=== PATIENT | male | born 1950 | race Caucasian/White ===

== ENCOUNTER 2024-11-19 12:01 | Inpatient (IN) | payer OTHER, MEDICARE ==
[~2024-11-19] VITALS: Ht 176.5 cm; Wt 81.3 kg
[~2024-11-19 12:01] MED LIST: SYNTHROID
--- NOTE | 2024-11-19 12:35 | ED.PDOC ---
GI ASSESSMENT HPI Comments 74y M who presents to the ED for chief complaint of rectal bleeding. Pt states last night PM, he had bowel movement and states he noted blood in bowel movement but states due to the increase in blood in toilet, he was unable to see his stool. Pt states he has had prior history of diverticulitis and states was placed on antibiotics by PCP and finished his course. Pt states today, he also noted to have L sided chest pain, rating the pain 2/10, constant, and came to the ED for further evaluation. Pt states he otherwise has history of prostate cancer and recently finished his course of treatment 4 months prior. Pt otherwise denies any other symptoms at this time. Chief Complaint: GI Bleed Time Seen by MD: 12:28 Primary Care Provider: CAMELIA Sutton Notes: Nurses Notes Allergies: Coded Allergies: NO KNOWN ALLERGIES (Unverified , 01/05/13) Home Meds Reported Medications [Synthroid] No Conflict Check 01/05/13 Information Source: Patient Mode of Arrival: Ambulatory Brought in by: self Timing: Hours Duration: Since onset Prehospital treatment: None Quality: Aching Vomitus: None Stool: Blood Streaked Severity: Moderate Recent: None Recent Hx of: Immunosuppression Modifying Factors: Nothing Associated sign and symptoms: Diarrhea, Blood in Stool, Other (chest pain) Past Medical History PAST MEDICAL HISTORY: Cancer, High Lipids Surgical History (Other): stye, cyst on face and abdomen Family History Family History: Reviewed,noncontributory to illness Social History Smoker: Non-Smoker Alcohol: Denies ETOH Use Drugs: Denies Drug Use Lives In: Home Constitutional: denies: chills, diaphoresis, fatigue, fever, malaise, sweats, weakness, others EENTM: denies: blurred vision, double vision, ear bleeding, ear discharge, ear drainage, ear pain, ear ringing, eye pain, eye redness, hearing loss, mouth pain, mouth swelling, nasal discharge, nose bleeding, nose congestion, nose pain, photophobia, tearing, throat pain, throat swelling, voice changes, others Respiratory: denies: cough, hemoptysis, orthopnea, SOB at rest, shortness of breath, SOB with excertion, stridor, wheezing, others Cardiovascular: reports: chest pain; denies: dizzy spells, diaphoresis, Dyspnea on exertion, edema, irregular heart beat, left arm pain, lightheadedness, palpitations, PND, syncope, others Gastrointestinal: reports: rectal bleeding, rectal pain; denies: abdomen distended, abdominal pain, blood streaked bowels, constipated, diarrhea, dysphagia, difficulty swallowing, hematemesis, melena, nausea, poor appetite, poor fluid intake, vomiting, others Genitourinary: denies: burning, dysuria, flank pain, frequency, hematuria, incontinence, penile discharge, penile sore, pain, testicle pain, testicle swelling, urgency, others Neurological: denies: dizziness, fainting, headache, left sided numbness, left sided weakness, numbness, paresthesia, pre-existing deficit, right sided numbness, right sided weakness, seizure, speech problems, tingling, tremors, weakness, others Musculoskeletal: denies: back pain, gout, joint pain, joint swelling, muscle pain, muscle stiffness, neck pain, others Integumetry: denies: bruises, change in color, change in hair/nails, dryness, laceration, lesions, lumps, rash, wounds, others Allergic/Immunocompromised: denies: Difficulty Healing, Frequent Infections, Hives, Itching, others Hematologic/Lymphatic: denies: anemia, blood clots, easy bleeding, easy bruising, swollen glands, others Endocrine: denies: excessive hunger, excessive sweating, excessive thirst, excessive urination, flushing, intolerance to cold, intolerance to heat, unexplained weight gain, unexplained weight loss, others Psychiatric: denies: anxiety, bipolar disorder, depression, hopeless, panic disorder, schizophrenia, sleepless, suicidal, others All Other Systems: Reviewed and Negative Physical Exam General Appearance: Moderate Distress HEENT: Normal ENT Inspection, Pharynx Normal, TMs Normal Neck: Full Range of Motion, Non-Tender, Normal, Normal Inspection Respiratory: Chest Non-Tender, Lungs Clear, No Accessory Muscle Use, No Respiratory Distress, Normal Breath Sounds Cardiovascular: No Edema, No JVD, No Murmur, No Gallop, Normal Peripheral Pulses, Regular Rate/Rhythm Breast Exam: Deferred Gastrointestinal: LLQ, No Organomegaly, No Pulsatile Mass, Normal Bowel Sounds, Soft, Suprapubic, Tenderness Genitalia: Deferred Pelvic: Deferred Rectal: Deferred Extremities: No calf tenderness, Normal capillary refill, Normal inspection, Normal range of motion, Non-tender, No pedal edema Musculoskeletal : Apperance: Normal Neurologic: Alert, commercial coordinator II-XII nml as Tested, No Motor Deficits, Normal Affect, Normal Mood, No Sensory Deficits Cerebellar Function: Normal Reflexes: Normal Skin: Dry, Normal Color, Warm Lymphatic: No Adenopathy EKG EKG : Pulse Rate (adult): 75 Ambler: Normal Cardiac Rhythm: NSR Block: None Hypertrophy: None ST: Normal Was a procedure done? Was a procedure done?: No GI differential Dx Differential Diagnosis: Constipation, Diverticular disease, Gastroenteritis, GI hemorrhage, Dehydration, Electrolyte Imbalance, Food Poisoning, Stress Ulcer, Kidney Stone Other Differential Diagnosis colitis, X-Ray, Labs, Meds, VS Vital Signs Date Time Temp Pulse Resp B/P (MAP) Pulse Ox O2 Delivery O2 Flow Rate FiO2 11/19/24 13:04 98.3 76 18 128/87 (101) 95 98.3 11/19/24 13:04 76 18 95 Room Air 11/19/24 13:03 Room Air* 0 21 11/19/24 12:35 75 11/19/24 12:16 75 11/19/24 12:10 98.8 85 18 140/86 (104) 95 98.8 Lab Test 11/19/24 13:00 Range/Units White Blood Count 5.2 4.4-10.8 10^3/uL Red Blood Count 4.37 L 4.5-5.90 10^6/uL Hemoglobin 14.7 13.5-17.5 g/dL Hematocrit 42.3 41.0-53.0 % Mean Corpuscular Volume 96.7 80.0-100.0 fL Mean Corpuscular Hemoglobin 33.6 H 28.0-32.0 pg Mean Corpuscular Hemoglobin Concent 34.8 32.0-36.0 g/dL Red Cell Distribution Width 13.9 11.8-14.3 % Platelet Count 154 140-450 10^3/uL Mean Platelet Volume 7.3 6.9-10.8 fL Neutrophils (%) (Auto) 64.2 37.0-80.0 % Lymphocytes (%) (Auto) 23.6 10.0-50.0 % Monocytes (%) (Auto) 9.6 0.0-12.0 % Eosinophils (%) (Auto) 1.9 0.0-7.0 % Basophils (%) (Auto) 0.7 0.0-2.0 % Neutrophils # (Auto) 3.3 1.6-8.6 10 ^3/uL Lymphocytes # (Auto) 1.2 0.4-5.4 10 ^3/uL Monocytes # (Auto) 0.5 0-1.3 10 ^3/uL Eosinophils # (Auto) 0.1 0-0.8 10 ^3/uL Basophils # (Auto) 0 0-0.2 10 ^3/uL Nucleated Red Blood Cells 0.1 % Prothrombin Time 10.3 9.3-11.8 sec Prothrombin Time INR 0.97 0.9-1.15 Activated Partial Thromboplast Time 25.0 24.5-34.5 SEC Sodium Level 142 136-145 mmol/L Potassium Level 3.9 3.5-5.1 mmol/L Chloride Level 109 H 98-107 mmol/L Carbon Dioxide Level 26 20-31 mmol/L Anion Gap 7 5-15 Blood Urea Nitrogen 25 H 9-23 mg/dL Creatinine 0.88 0.700-1.30 mg/dL Glomerular Filtration Rate Calc 89 >90 mL/min BUN/Creatinine Ratio 28.4 H 10.0-20.0 Serum Glucose 114 H 74-106 mg/dL Calcium Level 9.9 8.7-10.4 mg/dL Total Bilirubin 1.1 H 0.2-1.0 mg/dL Aspartate Amino Transferase (AST) 20 13-40 U/L Alanine Aminotransferase (ALT) 24 7-40 U/L Alkaline Phosphatase 94 46-116 U/L Total Protein 7.2 5.7-8.2 g/dL Albumin 4.6 3.2-4.8 g/dL Lipase 31 12-53 U/L CT Abd/Pel indicates: 1. There is no acute process in the abdomen and pelvis. 2. Moderate amount of stool in the colon. 3. Prostatomegaly. The patient's CBC is within normal limits The chemistry panel is within normal limits There is a concern because the patient was having a lower GI bleed The patient was being admitted at this time The patient understands and agrees with the management. Images Reviewed?: Images reviewed and evaluated by me Time of 1ST Reevaluation: 13:00 Reevaluation 1ST: Unchanged Patient Education/Counseling: Diagnosis, Treatment, Prognosis Family Education/Counseling: No Family Present Additional Information -Reviewed patient's previous visit(s): - The following tests were ordered, and results were reviewed by me: ekg x1, cbc, cmp, lipase, ct abd pelvis non-con, ptptt - Additional information was gathered from interviewing the following independent Historian: self - I reviewed and agreed with the following test results read by other provider: radiologist - I discussed treatments and results with medical personnel and: patient Comprehensive systems review obtained and negative except for what is stated in the HPI. Departure 1 Departure Time of Disposition: 15:57 Impression: Primary Impression: Lower GI bleed Disposition: ADMITTED INPATIENT Admit to: Med Surg Condition: Fair Critical Care Note Critical Care Time?: No Stability Stability form required: Yes Unstable for transfer: ED Physician Assesment (Clinical assesment) Heart Score Heart Score: Heart Score Response (Comments) Value History Slightly Suspicious 0 EKG Normal 0 Age >65 2 Risk Factors 1 or 2 risk factors 1 Troponin N/A 0 Total 3 I personally scribed for KASH ARMSTRONG MD ([email or web address]) on 11/19/24 at 12:35. Electronically submitted by Ritu Osorio ([email or web address]). I personally scribed for KASH ARMSTRONG MD ([email or web address]) on 11/19/24 at 13:08. Electronically submitted by Malcolm Coffman ([email or web address]). I personally scribed for KASH ARMSTRONG MD ([email or web address]) on 11/19/24 at 13:35. Electronically submitted by Ritu Osorio ([email or web address]). KASH ARMSTRONG MD Nov 19, 2024 12:35
--- NOTE | 2024-11-19 12:58 | DVH ---
CT ABDOMEN AND PELVIS WITHOUT CONTRAST CLINICAL HISTORY: pain TECHNIQUE: Multiple contiguous axial images of the abdomen and pelvis without intravenous contrast. T he images were reformatted degenerate coronal and sagittal reconstructions. All CT scans at this medical facility are performed using dose modulation techniques as appropriate t o a performed exam including the following:Automated exposure control was utilized; adjustment of the MA and/or KV according to patient size; and use of iterative reconstruction technique. Radiation Dose Information: CT Dose: CTDI volume is 9.67 mGy. Dose-length product is 488.67 mGy*cm Comparison: None FINDINGS: Evaluation of the abdomen and pelvis is limited without intravenous contrast. There is no evidence of nephrolithiasis or hydronephrosis. There are multiple bilateral renal cysts i ncluding multiple peripelvic cysts. There are small hypodense foci in the liver which are too small to characterize are favored to repres ent small cysts. The gallbladder, pancreas, delete the adrenal glands, and spleen appear within no rmal limits. There is no gross evidence of abdominal lymphadenopathy. There is no free fluid or free air. The stomach grossly appears unremarkable. The small and large bowel loops demonstrate normal caliber and distribution. There is moderate amount of stool in the colon. A normal appearing appendix is see n in the right lower quadrant abdomen. The abdominal aorta and IVC appear within normal limits. Prostate gland is prominent in size. Bladder appears within normal limits for degree of distention.. There is no gross evidence of a pelvic mass. There is no free fluid collection. Lung bases are clear. There is no acute osseous abnormality. IMPRESSION: 1. There is no acute process in the abdomen and pelvis. 2. Moderate amount of stool in the colon. 3. Prostatomegaly. HS:Y
[2024-11-19 13:21] LABS: Basophils # (auto) 0 10 ^3/uL (0-0.2); Basophils % (auto) 0.7 % (0.0-2.0); Eosinophils # (auto) 0.1 10 ^3/uL (0-0.8); Eosinophils % (auto) 1.9 % (0.0-7.0); Hematocrit 42.3 % (41.0-53.0); Hemoglobin 14.7 g/dL (13.5-17.5); Lymphocytes # (auto) 1.2 10 ^3/uL (0.4-5.4); Lymphocytes % (auto) 23.6 % (10.0-50.0); Mean Corpuscular Hemoglobin 33.6 pg (28.0-32.0); Mean Corpuscular Hgb Conc. 34.8 g/dL (32.0-36.0); Mean Corpuscular Volume 96.7 fL (80.0-100.0); Monocytes # (auto) 0.5 10 ^3/uL (0-1.3); Monocytes % (auto) 9.6 % (0.0-12.0); Neutrophils # (auto) 3.3 10 ^3/uL (1.6-8.6); Neutrophils % (auto) 64.2 % (37.0-80.0); Nucleated Red Blood Cells % 0.1 %; Platelet Count (auto) 154 10^3/uL (140-450); Red Blood Cells 4.37 10^6/uL (4.5-5.90); Red Cell Distribution Width 13.9 % (11.8-14.3); White Blood Cell 5.2 10^3/uL (4.4-10.8)
[2024-11-19 13:42] LABS: Alanine Aminotransferase 24 U/L (7-40); Albumin 4.6 g/dL (3.2-4.8); Alkaline Phosphatase 94 U/L (46-116); Anion Gap 7 (5-15); Aspartate Aminotransferase 20 U/L (13-40); BUN/Creatinine Ratio 28.4 (10.0-20.0); Calcium 9.9 mg/dL (8.7-10.4); Carbon Dioxide 26 mmol/L (20-31); INR 0.97 (0.9-1.15); Lipase 31 U/L (12-53); Potassium 3.9 mmol/L (3.5-5.1); Prothrombin Time 10.3 sec (9.3-11.8); Sodium 142 mmol/L (136-145); Total Protein 7.2 g/dL (5.7-8.2)
[2024-11-19 13:43] LABS: Bilirubin, Total 1.1 mg/dL (0.2-1.0); Blood Urea Nitrogen 25 mg/dL (9-23); Chloride 109 mmol/L (98-107); Glucose 114 mg/dL (74-106)
--- NOTE | 2024-11-19 18:11 | ECG ---
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
[2024-11-19] MEDS ORDERED: ONDANSETRON HCL 4 MG/2 ML VIAL IV PRN (19:15)
[2024-11-19] MEDS: PANTOPRAZOLE 40 MG/10 ML VIAL INJ IV ONE (19:33)
--- NOTE | 2024-11-19 22:10 | DVHHP2 ---
History of Present Illness Reason for Visit: Rectal bleeding History of Present Illness 74-year-old male presents for evaluation of rectal bleeding. Patient reports having two episodes of bloody stools over the past two days. Denies being on blood thinners. He does report a history of diverticulitis in the past. No abdominal pain, nausea or vomiting. No other acute complaints reported. Past Medical History Thyroid, dyslipidemia, cancer Past Surgical History Denies Family History Noncontributory Smoke: No ALCOHOL: none Drugs: None Lives: with Family Review of Systems Review of Systems Review of systems are currently negative otherwise addressed in HPI. Allergies: Coded Allergies: NO KNOWN ALLERGIES (Unverified , 01/05/13) Medications Current Medications Medications Dose Ordered Sig/Michelle Route Start Time Stop Time Status Last Admin Dose Admin Pantoprazole Sodium 40 mg DAILY IV 11/20/24 10:00 Levothyroxine Sodium 75 mcg QAM@0600 PO 11/20/24 06:00 Ondansetron HCl 4 mg Q4HP PRN IV 11/19/24 19:15 Exam Vital Signs Vital Signs Date Time Temp Pulse Resp B/P (MAP) Pulse Ox O2 Delivery O2 Flow Rate FiO2 11/19/24 19:31 70 16 144/92 (109) 96 11/19/24 13:04 98.3 98.3 11/19/24 13:04 Room Air 11/19/24 13:03 0 21 Exam Gen: 74-year-old male in mild distress Skin: Warm, dry, normal color and texture, no rash. HEENT: Normocephalic atraumatic, mucous membranes moist and pink. Neck: Cervical and supraclavicular nodes normal without enlargement, trachea is midline, thyroid gland is normal without masses. Pulmonary: Clear to auscultation and percussion bilaterally. Cardiac: Regular rate and rhythm. No murmur Abdomen: Soft, nontender, nondistended, bowel sounds present all 4 quadrants, no guarding, no rigidity, no organomegaly. Extremities: No cyanosis, clubbing, no edema Neuro: Cranial nerves II through XII grossly intact, normal affect and speech, no focal motor deficits. Labs/Xrays ORDERING PHYSICIAN: KASH ARMSTRONG MD PROCEDURE(s): ABPL - CT AB PEL WO CON-NO ORAL OR IV REASON: pain ORDER NUMBER(s): [id number], ACCESSION NUMBER(s): [id number] CT ABDOMEN AND PELVIS WITHOUT CONTRAST CLINICAL HISTORY: pain TECHNIQUE: Multiple contiguous axial images of the abdomen and pelvis without intravenous contrast. The images were reformatted degenerate coronal and sagittal reconstructions. All CT scans at this medical facility are performed using dose modulation techniques as appropriate to a performed exam including the following:Automated exposure control was utilized; adjustment of the MA and/or KV according to patient size; and use of iterative reconstruction technique. Radiation Dose Information: CT Dose: CTDI volume is 9.67 mGy. Dose-length product is 488.67 mGy*cm Comparison: None FINDINGS: Evaluation of the abdomen and pelvis is limited without intravenous contrast. There is no evidence of nephrolithiasis or hydronephrosis. There are multiple bilateral renal cysts including multiple peripelvic cysts. There are small hypodense foci in the liver which are too small to characterize are favored to represent small cysts. The gallbladder, pancreas, delete the adrenal glands, and spleen appear within normal limits. There is no gross evidence of abdominal lymphadenopathy. There is no free fluid or free air. The stomach grossly appears unremarkable. The small and large bowel loops demonstrate normal caliber and distribution. There is moderate amount of stool in the colon. A normal appearing appendix is seen in the right lower quadrant abdomen. The abdominal aorta and IVC appear within normal limits. Prostate gland is prominent in size. Bladder appears within normal limits for degree of distention.. There is no gross evidence of a pelvic mass. There is no free fluid collection. Lung bases are clear. There is no acute osseous abnormality. IMPRESSION: 1. There is no acute process in the abdomen and pelvis. 2. Moderate amount of stool in the colon. 3. Prostatomegaly. HS:Y Labs Test 11/19/24 13:00 Range/Units White Blood Count 5.2 4.4-10.8 10^3/uL Red Blood Count 4.37 L 4.5-5.90 10^6/uL Hemoglobin 14.7 13.5-17.5 g/dL Hematocrit 42.3 41.0-53.0 % Mean Corpuscular Volume 96.7 80.0-100.0 fL Mean Corpuscular Hemoglobin 33.6 H 28.0-32.0 pg Mean Corpuscular Hemoglobin Concent 34.8 32.0-36.0 g/dL Red Cell Distribution Width 13.9 11.8-14.3 % Platelet Count 154 140-450 10^3/uL Mean Platelet Volume 7.3 6.9-10.8 fL Neutrophils (%) (Auto) 64.2 37.0-80.0 % Lymphocytes (%) (Auto) 23.6 10.0-50.0 % Monocytes (%) (Auto) 9.6 0.0-12.0 % Eosinophils (%) (Auto) 1.9 0.0-7.0 % Basophils (%) (Auto) 0.7 0.0-2.0 % Neutrophils # (Auto) 3.3 1.6-8.6 10 ^3/uL Lymphocytes # (Auto) 1.2 0.4-5.4 10 ^3/uL Monocytes # (Auto) 0.5 0-1.3 10 ^3/uL Eosinophils # (Auto) 0.1 0-0.8 10 ^3/uL Basophils # (Auto) 0 0-0.2 10 ^3/uL Nucleated Red Blood Cells 0.1 % Prothrombin Time 10.3 9.3-11.8 sec Prothrombin Time INR 0.97 0.9-1.15 Activated Partial Thromboplast Time 25.0 24.5-34.5 SEC Sodium Level 142 136-145 mmol/L Potassium Level 3.9 3.5-5.1 mmol/L Chloride Level 109 H 98-107 mmol/L Carbon Dioxide Level 26 20-31 mmol/L Anion Gap 7 5-15 Blood Urea Nitrogen 25 H 9-23 mg/dL Creatinine 0.88 0.700-1.30 mg/dL Glomerular Filtration Rate Calc 89 >90 mL/min BUN/Creatinine Ratio 28.4 H 10.0-20.0 Serum Glucose 114 H 74-106 mg/dL Calcium Level 9.9 8.7-10.4 mg/dL Total Bilirubin 1.1 H 0.2-1.0 mg/dL Aspartate Amino Transferase (AST) 20 13-40 U/L Alanine Aminotransferase (ALT) 24 7-40 U/L Alkaline Phosphatase 94 46-116 U/L Total Protein 7.2 5.7-8.2 g/dL Albumin 4.6 3.2-4.8 g/dL Lipase 31 12-53 U/L Assessment/Plan Assessment/Plan Assessment Lower GI bleed Plan Admit the patient to [facility] to the hospitalist GI consultation IV Protonix Clear liquid diet Continue treatment per orders. Plan discussed with: Patient My Orders Orders - SHELBI JOSUE Procedure Category Date Status Time Pantoprazole PHA 11/20/24 In Process (Protonix) 10:00 Levothyroxine Tablet PHA 11/20/24 In Process (Synthroid Tablet) 06:00 Stool Occult Blood LAB 11/19/24 Logged 19:13 Basic Metabolic Panel LAB 11/20/24 Verified 04:00 Admit ADMIT 11/19/24 Transmitted 19:13 Ondansetron Hcl PHA 11/19/24 In Process (Zofran) 19:15 Complete Blood Count LAB 11/20/24 Verified 04:00 Condition: Stable ESTELLA 11/19/24 In Process 19:13 Clear Liq Diet DIET 11/20/24 Transmitted Breakfast Bedrest With Bathroom ESTELLA 11/19/24 In Process Privileg 19:13 Date of Service: Nov 19, 2024 Billing Provider: SHELBI JOSUE Common Visit Codes: [id number] INP/OBS CARE (HIGH) SHELBI JOSUE Nov 19, 2024 22:10
[2024-11-19 22:48] VITALS: PULSE 61; RESP 16; O2SAT 97
[2024-11-19] MEDS ORDERED: LEVO75TA6 PO (23:00)
[2024-11-20] VITALS (7 sets, daily range): BP systolic 95–118; BP diastolic 63–75; PULSE 57–67; RESP 15–18; TEMP 36.6; O2SAT 95–99
[2024-11-20] MEDS: LEVOTHYROXINE SODIUM 25 MCG TAB PO SCH (05:34)
[2024-11-20 07:18] LABS: Basophils # (auto) 0.1 10 ^3/uL (0-0.2); Eosinophils # (auto) 0.1 10 ^3/uL (0-0.8); Hemoglobin 13.3 g/dL (13.5-17.5); Monocytes # (auto) 0.6 10 ^3/uL (0-1.3); White Blood Cell 4.8 10^3/uL (4.4-10.8)
[2024-11-20 07:21] LABS: Basophils % (auto) 1.3 % (0.0-2.0); Hematocrit 36.6 % (41.0-53.0); Lymphocytes # (auto) 1.5 10 ^3/uL (0.4-5.4); Lymphocytes % (auto) 31.5 % (10.0-50.0); Mean Corpuscular Hemoglobin 34.7 pg (28.0-32.0); Mean Corpuscular Hgb Conc. 36.3 g/dL (32.0-36.0); Mean Corpuscular Volume 95.4 fL (80.0-100.0); Monocytes % (auto) 11.7 % (0.0-12.0); Neutrophils # (auto) 2.6 10 ^3/uL (1.6-8.6); Neutrophils % (auto) 53.5 % (37.0-80.0); Nucleated Red Blood Cells % 0.1 %; Platelet Count (auto) 137 10^3/uL (140-450); Red Blood Cells 3.83 10^6/uL (4.5-5.90); Red Cell Distribution Width 13.9 % (11.8-14.3)
[2024-11-20 07:28] LABS: Sodium 141 mmol/L (136-145)
[2024-11-20 07:29] LABS: Anion Gap 7 (5-15); Calcium 9.6 mg/dL (8.7-10.4); Carbon Dioxide 27 mmol/L (20-31)
[2024-11-20 07:34] LABS: BUN/Creatinine Ratio 25.6 (10.0-20.0); Blood Urea Nitrogen 20 mg/dL (9-23); Glucose 90 mg/dL (74-106)
[2024-11-20 07:37] LABS: Chloride 107 mmol/L (98-107); Potassium 3.5 mmol/L (3.5-5.1)
[2024-11-20] MEDS: PANTOPRAZOLE 40 MG/10 ML VIAL INJ IV SCH (09:41)
--- NOTE | 2024-11-20 15:05 | DVHINCON2 ---
Date of service: Nov 20, [address] Perez Reason for Consultation GI bleed History of Present Illness The patient is a 74-year-old male who states that he underwent colonoscopy several years ago with Dr. Serrano, findings were negative, he has a history of diverticulitis as well, admitted with GI bleeding. Patient had two episodes of bright red blood per rectum. Patient states that he has hemorrhoids. He states that he always has lower abdominal pain due to gas. He denies any fevers or chills, he denies any chest pain or shortness of breath. The bleeding has stopped today. Patient denies any hematemesis, history of significant aspirin or NSAID use. Patient denies history of anemia, diabetes, cardiac disease, pulmonary disease, arthralgias myalgias, dysuria or hematuria Past Medical History Hypothyroidism Past Surgical History Denies any abdominal surgery Family History: Patient reports no known family medical history. Family History No gastrointestinal diseases or malignancies Allergies: Coded Allergies: NO KNOWN ALLERGIES (Unverified , 01/05/13) Home Meds Reported Medications Levothyroxine Sodium (Levothyroxine Sodium) 75 Mcg Tab, 1 TAB PO DAILY 11/19/24 [Synthroid] No Conflict Check 01/05/13 Current Medications Current Medications Medications (Trade) Dose Ordered Sig/Michelle Route PRN Reason Start Time Stop Time Status Last Admin Pantoprazole Sodium (Protonix) 40 mg DAILY IV 11/20/24 10:00 11/20/24 09:41 Levothyroxine Sodium (Synthroid Tablet) 75 mcg QAM@0600 PO 11/20/24 06:00 11/20/24 05:34 Ondansetron HCl (Zofran) 4 mg Q4HP PRN IV NAUSEA / VOMITING 11/19/24 19:15 Review of Systems Review of systems as per HPI Vital Signs Vital Signs Date Time Temp Pulse Resp B/P (MAP) Pulse Ox O2 Delivery O2 Flow Rate FiO2 11/20/24 13:00 97.6 57 15 103/71 (82) 99 97.6 11/20/24 08:15 Room Air* 0 21 Physical Exam General: Alert and oriented elderly male no distress HEENT: Patient is wearing glasses otherwise NC/AT EOMI PERRLA O/P clear Heart: Regular rate and rhythm Abdomen: Soft nontender nondistended normoactive bowel sounds Extremity: No clubbing cyanosis or edema Neuro: Cranial nerves 2-12 grossly intact Labs/Diagnostic Data Labs Test 11/20/24 06:26 11/20/24 00:05 11/19/24 13:00 Range/Units White Blood Count 4.8 4.4-10.8 10^3/uL Red Blood Count 3.83 L 4.5-5.90 10^6/uL Hemoglobin 13.3 L 13.5-17.5 g/dL Hematocrit 36.6 #L 41.0-53.0 % Mean Corpuscular Volume 95.4 80.0-100.0 fL Mean Corpuscular Hemoglobin 34.7 H 28.0-32.0 pg Mean Corpuscular Hemoglobin Concent 36.3 H 32.0-36.0 g/dL Red Cell Distribution Width 13.9 11.8-14.3 % Platelet Count 137 L 140-450 10^3/uL Mean Platelet Volume 7.1 6.9-10.8 fL Neutrophils (%) (Auto) 53.5 37.0-80.0 % Lymphocytes (%) (Auto) 31.5 10.0-50.0 % Monocytes (%) (Auto) 11.7 0.0-12.0 % Eosinophils (%) (Auto) 2.0 0.0-7.0 % Basophils (%) (Auto) 1.3 0.0-2.0 % Neutrophils # (Auto) 2.6 1.6-8.6 10 ^3/uL Lymphocytes # (Auto) 1.5 0.4-5.4 10 ^3/uL Monocytes # (Auto) 0.6 0-1.3 10 ^3/uL Eosinophils # (Auto) 0.1 0-0.8 10 ^3/uL Basophils # (Auto) 0.1 0-0.2 10 ^3/uL Nucleated Red Blood Cells 0.1 % Sodium Level 141 136-145 mmol/L Potassium Level 3.5 3.5-5.1 mmol/L Chloride Level 107 98-107 mmol/L Carbon Dioxide Level 27 20-31 mmol/L Anion Gap 7 5-15 Blood Urea Nitrogen 20 9-23 mg/dL Creatinine 0.78 0.700-1.30 mg/dL Glomerular Filtration Rate Calc 92 >90 mL/min BUN/Creatinine Ratio 25.6 H 10.0-20.0 Serum Glucose 90 74-106 mg/dL Calcium Level 9.6 8.7-10.4 mg/dL Stool Occult Blood Negative Negative Stool Occult Blood Sample #3 Negative Prothrombin Time 10.3 9.3-11.8 sec Prothrombin Time INR 0.97 0.9-1.15 Activated Partial Thromboplast Time 25.0 24.5-34.5 SEC Total Bilirubin 1.1 H 0.2-1.0 mg/dL Aspartate Amino Transferase (AST) 20 13-40 U/L Alanine Aminotransferase (ALT) 24 7-40 U/L Alkaline Phosphatase 94 46-116 U/L Total Protein 7.2 5.7-8.2 g/dL Albumin 4.6 3.2-4.8 g/dL Lipase 31 12-53 U/L Assessment 1. History of diverticulitis 2. Rectal bleeding 3. History of hemorrhoids Problems(with codes): (1) Lower GI bleed Plan/Recommendation 1. Discharge patient home 2. Outpatient follow up with Dr. Serrano 3. High-fiber diet 4. Patient educated on straining 5. Consider surgical referral for hemorrhoid Plan discussed with: Patient CASEY CLINE MD Nov 20, 2024 15:05
--- NOTE | 2024-11-20 17:44 | DVHDS2 ---
Discharge Summary Date of Admission Nov 19, 2024 at 19:13 Date of Discharge: Nov 20, 2024 Labs/Diagnostic Data: Laboratory Results Test 11/20/24 06:26 11/20/24 00:05 11/19/24 13:00 White Blood Count 4.8 10^3/uL (4.4-10.8) Red Blood Count 3.83 10^6/uL (4.5-5.90) Hemoglobin 13.3 g/dL (13.5-17.5) Hematocrit 36.6 % (41.0-53.0) Mean Corpuscular Volume 95.4 fL (80.0-100.0) Mean Corpuscular Hemoglobin 34.7 pg (28.0-32.0) Mean Corpuscular Hemoglobin Concent 36.3 g/dL (32.0-36.0) Red Cell Distribution Width 13.9 % (11.8-14.3) Platelet Count 137 10^3/uL (140-450) Mean Platelet Volume 7.1 fL (6.9-10.8) Neutrophils (%) (Auto) 53.5 % (37.0-80.0) Lymphocytes (%) (Auto) 31.5 % (10.0-50.0) Monocytes (%) (Auto) 11.7 % (0.0-12.0) Eosinophils (%) (Auto) 2.0 % (0.0-7.0) Basophils (%) (Auto) 1.3 % (0.0-2.0) Neutrophils # (Auto) 2.6 10 ^3/uL (1.6-8.6) Lymphocytes # (Auto) 1.5 10 ^3/uL (0.4-5.4) Monocytes # (Auto) 0.6 10 ^3/uL (0-1.3) Eosinophils # (Auto) 0.1 10 ^3/uL (0-0.8) Basophils # (Auto) 0.1 10 ^3/uL (0-0.2) Nucleated Red Blood Cells 0.1 % Sodium Level 141 mmol/L (136-145) Potassium Level 3.5 mmol/L (3.5-5.1) Chloride Level 107 mmol/L (98-107) Carbon Dioxide Level 27 mmol/L (20-31) Anion Gap 7 (5-15) Blood Urea Nitrogen 20 mg/dL (9-23) Creatinine 0.78 mg/dL (0.700-1.30) Glomerular Filtration Rate Calc 92 mL/min (>90) BUN/Creatinine Ratio 25.6 (10.0-20.0) Serum Glucose 90 mg/dL (74-106) Calcium Level 9.6 mg/dL (8.7-10.4) Stool Occult Blood Negative (Negative) Stool Occult Blood Sample #3 (Negative) Prothrombin Time 10.3 sec (9.3-11.8) Prothrombin Time INR 0.97 (0.9-1.15) Activated Partial Thromboplast Time 25.0 SEC (24.5-34.5) Total Bilirubin 1.1 mg/dL (0.2-1.0) Aspartate Amino Transferase (AST) 20 U/L (13-40) Alanine Aminotransferase (ALT) 24 U/L (7-40) Alkaline Phosphatase 94 U/L (46-116) Total Protein 7.2 g/dL (5.7-8.2) Albumin 4.6 g/dL (3.2-4.8) Lipase 31 U/L (12-53) Other Laboratory Tests 11/20/24 06:26 Brief Hx & Hospital Course: 74-year-old male with a known history of hemorrhoids, hypothyroidism, initially presented to the hospital with bright red blood per rectum with two episodes. Patient's hematoma stable. GI was consulted who recommended outpatient follow up. Patient is currently being discharged under stable condition. Condition at Discharge: Stable Final Diagnosis/Problems List 1.Bright red blood per rectum suspected secondary to hemorrhoids 2. Hemorrhoids 3. Hypothyroidism Discharge Disposition: Home SNF Discharge Will this Physician continue t: No Discharge Instruct/Medications Diet: Cardiac 2g Na,low cholest Activity: No Restrictions, As Tolerated Follow Up/Referral: Outpatient follow up with the PCP and Dr.Neera Zach bellamy with GI in 1-2 weeks Medications: Resume home medications including levothyroxine Discharge Statement: "Patient was advised to return to the ER or call 911 if any headaches, dizziness, shortness of breath, chest pain, abdominal pain, bleeding, fevers, or worsening of medical condition. Patient was counseled about treatment plan, medications, possible side effects, patientverbalized understanding. All questions were answered to the best of my ability. This discharge took greater then 30 minutes in planning, reviewing documentation, counseling the patient, and discussing with other team members." ASSESSMENT ASSESSMENT Assessment Bright red blood per rectum suspected secondary to hemorrhoids 2. Hemorrhoids 3. Hypothyroidism Date of Service: Nov 20, 2024 Billing Provider: LAMONTE FITZPATRICK MD Common Visit Codes: 28253-BMX/OBS DISCH DAY >30min LAMONTE FITZPATRICK MD Nov 20, 2024 17:44
== END 2024-11-20 19:08 | disposition home or self-care (01) | DRG 395 ==
LOC: ER 12:08 → OVERFLOW 19:13 → EAST 22:16
PROVIDERS: ADMIT Nurse Practitioner; ATTEND Nurse Practitioner
DX: K64.9 Unspecified hemorrhoids (principal); E03.9 Hypothyroidism, unspecified; E78.5 Hyperlipidemia, unspecified; Z85.46 Personal history of malignant neoplasm of prostate; Z79.899 Other long term (current) drug therapy
CPT/HCPCS: 36415; 74176; 80048; 80053; 82270; 83690; 85025; 85610; 85730; 86850; 86900; 86901; 93005; G0378; J2470